=== PATIENT | female | born 1990 | race Caucasian/White ===

== ENCOUNTER → 2019-02-05 | Outpatient (CLI) | payer MEDICAID ==
--- NOTE | 2019-02-05 12:11 | US ---
EXAM DESCRIPTION: Abdomen,Complete: Ultrasound. CLINICAL HISTORY: RUQ PAIN. 25 weeks intrauterine . COMPARISON: None Available. TECHNIQUE: Transabdominal scanning: grayscale and Doppler modes. FINDINGS: Gallbladder: Normal size with no intraluminal stones or sludge. No wall thickening 2.6 mm. No fluid. Nontender with transducer pressure. Common bile duct: 2.6 mm normal caliber. Liver: Long axis right lobe enlarged measuring 18.9 cm. Normal echoes. Smooth capsule with no ascites. Normal portal vein caliber and hepatopedal flow. Normal caliber ducts. Pancreas: Normal echogenicity of included segments with duct not seen.. Abdominal aorta: Normal caliber from the proximal segment to the distal bifurcation. IVC: visualized; normal caliber. Spleen normal echogenicity; long axis measurement is 12.6 cm. Right kidney: 13.2 cm long axis with minimal lobulation of the capsule. Normal cortical thickening and echogenicity. Mild hydronephrosis. No echogenic stones and no perirenal fluid. Proximal ureter not seen. Left kidney: 12.3 cm long axis. Normal cortical thickness and echogenicity with minimal lobulation of the capsule. No hydronephrosis, no echogenic stones, no perirenal fluid. Proximal ureter not seen.. IMPRESSION: 1. Mild hydronephrosis of the right kidney with no echogenic stones in the kidney or renal pelvis. Hydronephrosis of right kidney common with mass effect from second or third trimester intrauterine . Left kidney is unremarkable. 2. Negative findings in the gallbladder, common bile duct, liver, pancreas, and spleen. Aorta and IVC unremarkable. No ascites. Electronically signed by: Jeromy Wright MD 02/05/2019 12:09 PM CDT
== END ==
LOC: LAB.O 10:28
PROVIDERS: ATTEND Nurse Practitioner Family
DX: N13.30 Unspecified hydronephrosis (principal); Z33.1 Pregnant state, incidental; Z3A.25 25 weeks gestation of pregnancy

== ENCOUNTER 2019-05-08 15:52 | Emergency (ER) | payer MEDICAID ==
[2019-05-08] MEDS ORDERED: ACETAMINOPHEN 500 MG TAB ONE (16:15)
[2019-05-08] MEDS ORDERED: ACETAMINOPHEN 500 MG TAB PO ONE (16:18)
--- NOTE | 2019-05-08 16:21 | ED.PDOC ---
History of Present Illness - General Chief Complaint: Bite: Animal/Insect/Human Stated Complaint: k-9 unit bite Time Seen by Provider: 05/08/19 16:20 Source: patient Exam Limitations: no limitations - History of Present Illness Initial Comments: 29 yo F who is 39 weeks who presents for dog bite to BUE. Pt states she was trying to take off the collar of her husbands K9 dog when he proceeded to bite her on BUE. Pt reports exquisite pain surrounding bites. Tetanus is UTD. No pain or injury elsewhere. No abd pain, head trauma, LOC, numbness, weakness. Allergies/Adverse Reactions: Allergies Amoxicillin Allergy (Intermediate, Verified 04/03/15 16:33) Hives Penicillins Allergy (Intermediate, Verified 04/03/15 16:33) Hives Home Medications: Ambulatory Orders Amphetamine-Dextroamphetamine [Adderall 20 mg] 1 tab PO DAILY 04/03/15 Citalopram Hydrobromide [Celexa] 40 mg PO DAILY 04/03/15 Cyclobenzaprine HCl [Flexeril] 5 mg PO TID PRN #30 tab 04/03/15 predniSONE 20 mg PO DAILY #5 tab 04/03/15 Clindamycin HCl [Cleocin] 450 mg PO Q8HR 7 Days #63 cap 05/08/19 Review of Systems - Review of Systems Constitutional: States: no symptoms reported EENTM: States: no symptoms reported Respiratory: States: no symptoms reported Cardiology: States: no symptoms reported Gastrointestinal/Abdominal: States: no symptoms reported Genitourinary: States: no symptoms reported Musculoskeletal: States: other - BUE pain 2/2 dog bite Skin: States: lesions - dog bites Neurological: Denies: numbness, weakness Past Medical History (General) - Patient Medical History Hx Seizures: No Hx Cardiac Disorders: No Hx Diabetes: No Surgical History: other - Vaccination History Hx Tetanus, Diphtheria Vaccination: Yes Hx Influenza Vaccination: Yes - 2013 Hx Pneumococcal Vaccination: No - Social History Hx Tobacco Use: No - Female History Patient : No Family Medical History - Family History Mother Family History: No Known Living Status: Still Living Physical Exam - Physical Exam General Appearance: Alert, Well Developed, Well Nourished Neck: full range of motion, supple Respiratory: chest non-tender, lungs clear, normal breath sounds, no respiratory distress, no accessory muscle use Cardiovascular/Chest: regular rate, rhythm, no gallop, no JVD, no murmur Peripheral Pulses: radial,right: 2+, radial,left: 2+ Gastrointestinal/Abdominal: non tender, soft, other - Gravid Extremity: other - BUE with multiple puncture wounds, no active bleeding. TTP throughout lower arms and distally. Minimal swelling appreciated. Neurologic: no motor/sensory deficits Skin Exam: normal color, warm/dry Progress - Progress Progress: 05/08/19 17:43 I have explained and reviewed all results with the pt. I explained that emergent conditions may arise and to return to the ER for new, worsening, or any persistent conditions. Discussed signs of infection. I've explained the importance of f/u for recheck. All questions and concerns addressed at this time. Pt understands and agrees with plan. 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 Pt well appearing, NAD, is stable for discharge. Esthela Krueger MD Emergency Medicine Physician Billing Number [id number] - Results/Orders Results/Orders: XR Left hand: EXAM DESCRIPTION: Hand,Left 3 Views CLINICAL HISTORY: dog bite COMPARISON: None Available. TECHNIQUE: AP, LATERAL, AND OBLIQUE FINDINGS: Three views left hand demonstrate no fracture or deformity or radiopaque foreign body. No evidence of dislocation is seen. No soft tissue mass or soft tissue gas is evident. There is no bone lesion. There are no significant arthritic changes. There is no radiopaque foreign body. IMPRESSION: 1. Negative left hand three views Electronically signed by: Sebastian Riddle MD 05/08/2019 5:00 PM CLAIMS CORRESPONDENCE CLERK XR Left forearm: EXAM DESCRIPTION: Forearm,Left CLINICAL HISTORY: 29 years Female, dog bite COMPARISON: None. FINDINGS: Two views left forearm demonstrate the bony structures intact. Small amount of soft tissue irregularity and questionable tiny bubbles of subcutaneous air proximally overlying the soft tissues adjacent to the radius consistent with a soft tissue injury is present. No bony injury or radiopaque foreign body is seen. IMPRESSION: Normal left forearm involving the radius and ulna with evidence of soft tissue injury with several small bubbles of gas suggesting possible infection in the proximal forearm at the myocutaneous junction adjacent to the proximal radial shaft. Electronically signed by: Sebastian Riddle MD 05/08/2019 4:57 PM CLAIMS CORRESPONDENCE CLERK XR Right hand: EXAM DESCRIPTION: Hand,Right 3 Views CLINICAL HISTORY: DOG BITE COMPARISON: None Available. TECHNIQUE: AP, LATERAL, AND OBLIQUE FINDINGS: Three-view right hand shows no fracture or dislocation. No soft tissue mass or soft tissue gas noted. There is no bone lesion. There are no significant arthritic changes. There is no radiopaque foreign body. IMPRESSION: 1. Negative right hand three views. Electronically signed by: Sebastian Riddle MD 05/08/2019 5:01 PM CLAIMS CORRESPONDENCE CLERK XR Right forearm: EXAM DESCRIPTION: Forearm,Right CLINICAL HISTORY: 29 years Female, dog bite COMPARISON: None. FINDINGS: Two views right forearm demonstrate the bony radius and ulna is intact without radiopaque foreign body. There is subtle irregularity of the soft tissue planes at the myocutaneous junction of the mid forearm along the radial aspect. Subcutaneous injury and/or infection suspected. IMPRESSION: No bony injury of the right forearm noted but the possibility of soft tissue injury or and/or infection along the radial aspect of the mid forearm evident Electronically signed by: Sebastian Riddle MD 05/08/2019 4:59 PM CLAIMS CORRESPONDENCE CLERK Vital Signs - 24 hr 05/08/19 05/08/19 05/08/19 15:54 16:52 18:05 Temperature 98.1 F 98.3 F Pulse Rate [ 85 92 H 87 right brachial] Respiratory 24 18 20 Rate Blood Pressure 164/106 143/99 142/98 [right brachial ] O2 Sat by Pulse 95 98 98 Oximetry Departure - Departure Clinical Impression: Dog bite Qualifiers: Encounter type: initial encounter Qualified Code(s): W54.0XXA - Bitten by dog, initial encounter Time of Disposition: 17:40 Disposition: Discharge to Home or Self Care Health Concerns: Condition: stable Departure Forms: ED Discharge - Pt. Copy, Patient Portal Self Enrollment Instructions: DI for Animal Bites Referrals: Natalie Lugo NP [Primary Care Provider] - 1-5 Days Prescriptions: Clindamycin HCl [Cleocin] 450 mg PO Q8HR 7 Days #63 cap Home Medications: Ambulatory Orders Amphetamine-Dextroamphetamine [Adderall 20 mg] 1 tab PO DAILY 04/03/15 Citalopram Hydrobromide [Celexa] 40 mg PO DAILY 04/03/15 Cyclobenzaprine HCl [Flexeril] 5 mg PO TID PRN #30 tab 04/03/15 predniSONE 20 mg PO DAILY #5 tab 04/03/15 Clindamycin HCl [Cleocin] 450 mg PO Q8HR 7 Days #63 cap 05/08/19 Additional Instructions: Follow up: [facility] As needed, if symptoms worsen
[2019-05-08] MEDS ORDERED: CALCIUM GLUCONATE INJ 1 GM/10 ML VIAL IV ONE (16:33)
--- NOTE | 2019-05-08 16:59 | RAD ---
EXAM DESCRIPTION: Forearm,Left CLINICAL HISTORY: 29 years Female, dog bite COMPARISON: None. FINDINGS: Two views left forearm demonstrate the bony structures intact. Small amount of soft tissue irregularity and questionable tiny bubbles of subcutaneous air proximally overlying the soft tissues adjacent to the radius consistent with a soft tissue injury is present. No bony injury or radiopaque foreign body is seen. IMPRESSION: Normal left forearm involving the radius and ulna with evidence of soft tissue injury with several small bubbles of gas suggesting possible infection in the proximal forearm at the myocutaneous junction adjacent to the proximal radial shaft. Electronically signed by: Sebastian Riddle MD 05/08/2019 4:57 PM [facility]
--- NOTE | 2019-05-08 17:00 | RAD ---
EXAM DESCRIPTION: Forearm,Right CLINICAL HISTORY: 29 years Female, dog bite COMPARISON: None. FINDINGS: Two views right forearm demonstrate the bony radius and ulna is intact without radiopaque foreign body. There is subtle irregularity of the soft tissue planes at the myocutaneous junction of the mid forearm along the radial aspect. Subcutaneous injury and/or infection suspected. IMPRESSION: No bony injury of the right forearm noted but the possibility of soft tissue injury or and/or infection along the radial aspect of the mid forearm evident Electronically signed by: Sebastian Riddle MD 05/08/2019 4:59 PM REFERENCE LIBRARY ASSISTANT
--- NOTE | 2019-05-08 17:01 | RAD ---
EXAM DESCRIPTION: Hand,Left 3 Views CLINICAL HISTORY: dog bite COMPARISON: None Available. TECHNIQUE: AP, LATERAL, AND OBLIQUE FINDINGS: Three views left hand demonstrate no fracture or deformity or radiopaque foreign body. No evidence of dislocation is seen. No soft tissue mass or soft tissue gas is evident. There is no bone lesion. There are no significant arthritic changes. There is no radiopaque foreign body. IMPRESSION: 1. Negative left hand three views Electronically signed by: Sebastian Riddle MD 05/08/2019 5:00 PM [facility]
--- NOTE | 2019-05-08 17:02 | RAD ---
EXAM DESCRIPTION: Hand,Right 3 Views CLINICAL HISTORY: DOG BITE COMPARISON: None Available. TECHNIQUE: AP, LATERAL, AND OBLIQUE FINDINGS: Three-view right hand shows no fracture or dislocation. No soft tissue mass or soft tissue gas noted. There is no bone lesion. There are no significant arthritic changes. There is no radiopaque foreign body. IMPRESSION: 1. Negative right hand three views. Electronically signed by: Sebastian Riddle MD 05/08/2019 5:01 PM [facility]
[2019-05-08 18:08] VITALS: BP 142/98; TEMP 98.3; O2SAT 98
== END 2019-05-08 18:05 | disposition home or self-care (01) ==
LOC: ER 15:52
DX: O9A.213 Injury, poisoning and certain other consequences of external causes complicating pregnancy, third trimester (principal); S61.452A Open bite of left hand, initial encounter; S51.852A Open bite of left forearm, initial encounter; S51.851A Open bite of right forearm, initial encounter; Z3A.39 39 weeks gestation of pregnancy; Z88.0 Allergy status to penicillin; W54.0XXA Bitten by dog, initial encounter; Y92.9 Unspecified place or not applicable